=== PATIENT | male | born 1965 | race African-American/Black ===

== ENCOUNTER 2016-09-13 11:44 | Emergency (ER) | payer SELFPAY ==
[~2016-09-13] VITALS: Ht 180.3 cm; Wt 68.0 kg
[~2016-09-13 11:44] MED LIST: ACETAMINOPHEN-1 EAC1 PO; HYDROCODON-ACE1 EA15 ORAL; IBUPROFEN800 M1 PO; NAPROXEN500 M2 PO; NKM; PENICILLIN V P250 MG PO; PROTONIX40 MG ORAL; ZOFRAN4 M3 ORAL
[2016-09-13 12:24] VITALS: BP 116/68
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
[2016-09-13 13:32] VITALS: BP 120/67
[2016-09-13 13:35] VITALS: BP 120/67
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
--- NOTE | 2016-09-13 14:09 | Diagnostic Imaging Report ---
Indication: PAIN Technique: 3 views left hand Comparison: none Findings: No acute fractures. No dislocations. The joint spaces are preserved. Impression: Negative
== END 2016-09-13 13:36 | disposition home or self-care (01) ==
LOC: EMR 12:21
DX: R42 Dizziness and giddiness (principal); S00.12XA Contusion of left eyelid and periocular area, initial encounter; Y08.89XA Assault by other specified means, initial encounter; Y92.9 Unspecified place or not applicable; M79.642 Pain in left hand; R51 Headache; J32.9 Chronic sinusitis, unspecified
CPT/HCPCS: 70450; 99284